=== PATIENT | female | born 1945 | race African-American/Black ===

== ENCOUNTER 2017-07-07 02:20 | Emergency (ER) | payer MEDICARE ==
[~2017-07-07] VITALS: Ht 162.6 cm; Wt 101.5 kg
[~2017-07-07 02:20] MED LIST: CALC-137 PO; COZA100T PO; DYAZ37.57 PO; LATA.005%O EACH EYE; VITA-13 PO
[2017-07-07 02:22] VITALS: BP 183/86; PULSE 90; RESP 18; TEMP 97.6; O2SAT 100
[2017-07-07 02:36] VITALS: BP 202/104; PULSE 79; RESP 15; O2SAT 99
[2017-07-07 02:37] VITALS: BP 200/107; PULSE 80; RESP 18; O2SAT 98
[2017-07-07] MEDS ORDERED: SODIUM CHLORIDE 0.9% FLUSH 10 ML FLUSH IVF PRN (02:45)
--- NOTE | 2017-07-07 02:53 | RADRPT ---
EXAM DATE/TIME: 07/07/2017 02:48 [place] COMPARISON: No previous studies available for comparison. INDICATIONS : Rapid Heart rate MEDICAL HISTORY : None. SURGICAL HISTORY : None. ENCOUNTER: Initial ACUITY: 1 day PAIN SCORE: 8/10 LOCATION: Bilateral chest FINDINGS: Mild cardiomegaly. No consolidation or effusion. Mild degenerative changes of the spine. CONCLUSION: No acute disease. Mason Marks MD on July 07, 2017 at 2:50 Board Certified Radiologist. This report was verified electronically.
--- NOTE | 2017-07-07 03:15 | PD ---
HPI Chief Complaint: Cardiac Complaint Time Seen by Provider: 02:32 Travel History International Travel<30 days: No Contact w/Intl Traveler<30days: No Traveled to known affect area: No History of Present Illness HPI The patient is a 71 year old female who presents to the [facility] emergency department with a history of palpitations and sob that began on 06/12. It comes and goes. It lasts for approximate 30 minutes at a time. Today is the 6th time it has happened. It is random and sometimes occurs at rest. She denies any history of chest pain. She saw her primary care physician regarding this on Friday. She has been referred to a new scalemaker and has an appointment on . She denies ever having a stress test done previously. She denies having any history of cardiac disease. She denies having any prior history of DVT or PE. She denies any prior history of congestive heart failure. She does have a history of hypertension. She reports that over the last month it has been difficult to control, however no changes have been made in her blood pressure regimen yet. She reports that she did have an EKG done, however she is unsure of the results. Review of systems otherwise, the patient denies having any recent fevers, cough or congestion, worsening lower extremity edema, neck pain, abdominal pain, vomiting, diarrhea, urinary symptoms, or neurologic symptoms. PCP: Dr. Haney. Cardiology: Dr. Vincent Hayden. [facility] Past Medical History Narrative Medical The patient's past medical history is significant for hypertension, pre-diabetes , glaucoma. Diminished Hearing: No Hypertension: Yes Past Surgical History Narrative Surgical breast bx-benign, cholecystectomy, uterine polyp removal. Cholecystectomy: Yes Gynecologic Surgery: Yes (UTERINE POLYPS REMOVED) Other Surgery: Yes (BREAST BIOPSY) Social History Alcohol Use: No Tobacco Use: No Substance Use: No Allergies-Medications (Allergen,Severity, Reaction): Coded Allergies: diphenhydramine (Unverified Allergy, Intermediate, Hives, 07/07/17) Reported Meds & Prescriptions Reported Meds & Active Scripts Active K-Tab (Potassium Chloride) 20 Meq Tab 20 Meq PO BID Reported Vitamin D-1000 (Cholecalciferol) 1,000 Unit Tab 1,000 Units PO DAILY Aspirin 81 (Aspirin) 81 Mg Tabdr 81 Mg PO DAILY Clonidine (Clonidine HCl) 0.1 Mg Tab 0.1 Mg PO BID Dyazide (Triamterene-Hydrochlorothiazide) 37.5-25 Mg Cap 1 Cap PO DAILY Losartan (Losartan Potassium) 100 Mg Tab 100 Mg PO DAILY Timolol Opth Drops 0.5 % Soln 1 Drop EACH EYE BID Review of Systems Except as stated in HPI: all other systems reviewed are Neg General / Constitutional: No: Fever Eyes: No: Visual changes HENT: No: Headaches, Rhinorrhea, Congestion Cardiovascular: Positive: Palpitations, Dyspnea on exertion, No: Chest Pain or Discomfort Respiratory: Positive: Shortness of Breath, No: Cough Gastrointestinal: No: Abdominal Pain Genitourinary: No: Dysuria Musculoskeletal: No: Pain Skin: No Rash Neurologic: No: Weakness, Focal Abnormalities, Change in Mentation, Slurred Speech, Sensory Disturbance Psychiatric: No: Depression Endocrine: No: Polydipsia Hematologic/Lymphatic: No: Easy Bruising Physical Exam Narrative General: The patient is a well-developed well-nourished female in no acute distress. Head and Neck exam: Head is normocephalic atraumatic. Eyes: EOMI, pupils are equal round and reactive to light. Nose: Midline septum with pink mucous membranes Mouth: Dentition unremarkable. Moist mucus membranes. Posterior oropharynx is not erythematous. No tonsillar hypertrophy. Uvula midline. Airway patent. Neck: No palpable lymphadenopathy. No nuchal rigidity. No thyromegaly. Cardiovascular: Regular rate and rhythm without murmurs, gallops, or rubs. Lungs: Clear to auscultation bilaterally. No wheezes, rhonchi, or rales. Abdomen: Soft, without tenderness to palpation in all 4 quadrants of the abdomen. No guarding, rebound, or rigidity. Normal bowel sounds are audible. No tenderness on palpation of McBurney's point. Extremities: No clubbing or cyanosis. The patient has trace pedal edema bilateral lower extremities. No calf tenderness on palpation. 2+ pulses in all 4 extremities. Back: No spinous process tenderness to palpation. No costovertebral angle tenderness to palpation. Neurologic Exam: Grossly nonfocal. Skin Exam: No rash noted. Intact skin that is warm and dry. Data Data Last Documented VS Vital Signs Date Time Temp Pulse Resp B/P (MAP) Pulse Ox O2 Delivery O2 Flow Rate FiO2 07/07/17 02:37 80 18 200/107 (138) 98 Room Air 07/07/17 02:22 97.6 Orders Orders Electrocardiogram (07/07/17 02:33) B-Type Natriuretic Peptide (07/07/17 02:33) Ckmb (Isoenzyme) Profile (07/07/17 02:33) Complete Blood Count With Diff (07/07/17 02:33) Comprehensive Metabolic Panel (07/07/17 02:33) D-Dimer (07/07/17 02:33) Magnesium (Mg) (07/07/17 02:33) Prothrombin Time / Inr (Pt) (07/07/17 02:33) Act Partial Throm Time (Ptt) (07/07/17 02:33) Troponin I (07/07/17 02:33) Lipase (07/07/17 02:33) Chest, Single Ap (07/07/17 02:33) Ecg Monitoring (07/07/17 02:33) Bilateral Bp Monitoring (07/07/17 02:33) Iv Access Insert/Monitor (07/07/17 02:33) Oximetry (07/07/17 02:33) Oxygen Administration (07/07/17 02:33) Sodium Chloride 0.9% Flush (Ns Flush) (07/07/17 02:45) Thyroid Stimulating Hormone (07/07/17 02:55) Potassium Chloride Eff (K-Lyte Cl Eff) (07/07/17 05:00) Ed Discharge Order (07/07/17 05:11) Labs Laboratory Tests Test 07/07/17 02:55 White Blood Count 9.6 TH/MM3 Red Blood Count 4.83 MIL/MM3 Hemoglobin 12.7 GM/DL Hematocrit 37.9 % Mean Corpuscular Volume 78.4 FL Mean Corpuscular Hemoglobin 26.3 PG Mean Corpuscular Hemoglobin Concent 33.5 % Red Cell Distribution Width 13.8 % Platelet Count 357 TH/MM3 Mean Platelet Volume 8.2 FL Neutrophils (%) (Auto) 64.5 % Lymphocytes (%) (Auto) 26.0 % Monocytes (%) (Auto) 7.4 % Eosinophils (%) (Auto) 1.6 % Basophils (%) (Auto) 0.5 % Neutrophils # (Auto) 6.2 TH/MM3 Lymphocytes # (Auto) 2.5 TH/MM3 Monocytes # (Auto) 0.7 TH/MM3 Eosinophils # (Auto) 0.2 TH/MM3 Basophils # (Auto) 0.0 TH/MM3 CBC Comment DIFF FINAL Differential Comment Prothrombin Time 9.7 SEC Prothromb Time International Ratio 1.0 RATIO Activated Partial Thromboplast Time 25.6 SEC D-Dimer Quantitative (PE/DVT) 0.46 MG/L FEU Blood Urea Nitrogen 23 MG/DL Creatinine 1.06 MG/DL Random Glucose 157 MG/DL Total Protein 7.3 GM/DL Albumin 3.6 GM/DL Calcium Level 9.2 MG/DL Magnesium Level 2.4 MG/DL Alkaline Phosphatase 76 U/L Aspartate Amino Transf (AST/SGOT) 14 U/L Alanine Aminotransferase (ALT/SGPT) 18 U/L Total Bilirubin 0.7 MG/DL Sodium Level 140 MEQ/L Potassium Level 3.1 MEQ/L Chloride Level 104 MEQ/L Carbon Dioxide Level 26.5 MEQ/L Anion Gap 10 MEQ/L Estimat Glomerular Filtration Rate 62 ML/MIN Total Creatine Kinase 62 U/L Troponin I LESS THAN 0.02 NG/ML B-Type Natriuretic Peptide 31 PG/ML Lipase 124 U/L Thyroid Stimulating Hormone 3rd Gen 5.300 uIU/ML MDM Medical Decision Making Medical Screen Exam Complete: Yes Emergency Medical Condition: Yes Medical Record Reviewed: Yes Interpretation(s) Last Impressions Chest X-Ray 07/07/17 0233 Signed Impressions: Service Date/Time: Friday, July 07, 2017 02:48 - CONCLUSION: No acute disease. Mason Marks MD Differential Diagnosis Acute coronary syndrome, versus new onset congestive heart failure, versus pulmonary embolism, versus cardiac arrhythmia Narrative Course During the course of the patient's emergency department visit, the patient's history, examination, and differential diagnosis were reviewed with the patient. The patient was placed on a nurse orthopaedic with oximetry and frequent blood pressure monitoring. The patient had IV access obtained and blood work sent for analysis. The patient's laboratory studies were reviewed and remarkable for a white count of 9.6, hemoglobin 12.7, platelets 357 with a normal differential, CMP is remarkable for potassium of 3.1 which was supplemented orally, BUN 23, creatinine 1.06, glucose 157, AST 14, cardiac enzymes within normal limits, BNP 31, lipase 124, TSH elevated at 5.3, d-dimer 0.46 decreasing the likelihood of pulmonary embolism in this patient with no other significant risk factors, PT PTT unremarkable. Radiology studies were reviewed and remarkable for the chest x-ray that shows no acute cardiopulmonary disease. The patient was offered admission to the chest pain center for rule out serial cardiac enzyme protocol followed by stress testing, however the patient reports that she prefers to follow-up as an outpatient. The patient will be given a prescription for a potassium supplement. The patient was instructed regarding her elevated TSH and the importance of following up with her primary care physician. She will call her primary care physician this morning for a follow- up appointment. She also has a cardiology appointment scheduled for . She was instructed to report back immediately if she has a recurrence of symptoms. The patient is resting comfortably and feels better, is alert and in no distress. The patient's results and examination findings were discussed with the patient. The repeat examination is unremarkable and benign. The history, exam, diagnostic testing, and current condition do not suggest any significant pathology to warrant further testing, continued ED treatment, admission, or surgical evaluation at this point. The vital signs have been stable. The patient does not have uncontrollable pain, intractable vomiting, or other significant symptoms. The patient's condition is stable and appropriate for discharge. The patient will pursue further outpatient evaluation with a primary care physician or other designated or consulting physician as indicated in the discharge instructions. The patient expressed understanding and was agreeable with this plan. Diagnosis Primary Impression: Hypokalemia Additional Impressions: Palpitations Elevated TSH Patient Instructions: General Instructions, Heart Palpitations (ED), Hypokalemia (ED), Hypothyroidism (ED) Med/Other Pt SpecificInfo: Prescription(s) given Scripts Potassium Chloride ER (K-Tab) 20 Meq Tab 20 MEQ PO BID for Electrolyte Replacement, #10 TAB 0 Refills Prov: Jayleen Rebollar MD 07/07/17 Disposition: 01 DISCHARGE HOME Condition: Stable Jayleen Rebollar MD Jul 07, 2017 03:15
[2017-07-07 03:30] LABS: AUTOMATED NEUTROPHIL # 6.2 TH/MM3 (1.8-7.7); BASOPHIL % 0.5 % (0.0-2.0); EOSINOPHIL # 0.2 TH/MM3 (0-0.4); EOSINOPHIL % 1.6 % (0.0-4.0); HEMATOCRIT 37.9 % (35.0-46.0); HEMOGLOBIN 12.7 GM/DL (11.6-15.3); LYMPHOCYTE # 2.5 TH/MM3 (1.0-4.8); MEAN CELL VOLUME 78.4 FL (80.0-100.0); MEAN CORPUSCULAR HEMOGLOBIN 26.3 PG (27.0-34.0); MEAN CORPUSCULAR HGB CONC 33.5 % (32.0-36.0); MEAN PLATELET VOLUME 8.2 FL (7.0-11.0); MONO % 7.4 % (0.0-8.0); MONOCYTE # 0.7 TH/MM3 (0-0.9); NEUT % 64.5 % (16.0-70.0); PLATELET COUNT 357 TH/MM3 (150-450); RED BLOOD COUNT 4.83 MIL/MM3 (4.00-5.30); RED CELL DISTRIBUTION WIDTH 13.8 % (11.6-17.2); WHITE BLOOD COUNT 9.6 TH/MM3 (4.0-11.0)
[2017-07-07 03:43] LABS: ALBUMIN 3.6 GM/DL (3.4-5.0); ALT (GPT) 18 U/L (10-53); AST (GOT) 14 U/L (15-37); BICARBONATE 26.5 MEQ/L (21.0-32.0); BLOOD UREA NITROGEN 23 MG/DL (7-18); CALCIUM 9.2 MG/DL (8.5-10.1); CHLORIDE 104 MEQ/L (98-107); CREATININE 1.06 MG/DL (0.50-1.00); GLOMERULAR FILTRATION RATE 62 ML/MIN (>89); GLUCOSE,RANDOM 157 MG/DL (74-106); MAGNESIUM 2.4 MG/DL (1.5-2.5); SODIUM (NA) 140 MEQ/L (136-145)
[2017-07-07 03:45] LABS: PROTHROMBIN TIME - PATIENT 9.7 SEC (9.8-11.6)
[2017-07-07] MEDS ORDERED: TIMO0.5S30 EACH EYE (03:45)
[2017-07-07] MEDS ORDERED: LOSA100T PO (03:45)
[2017-07-07] MEDS ORDERED: ASPI1TAB57 PO (03:45)
[2017-07-07] MEDS ORDERED: CLON0.1T PO (03:45)
[2017-07-07] MEDS ORDERED: VITA1000 PO (03:45)
[2017-07-07] MEDS ORDERED: DYAZ37.5 PO (03:45)
[2017-07-07 03:46] LABS: D-DIMER 0.46 MG/L FEU (0.00-0.50)
[2017-07-07 03:53] LABS: ALKALINE PHOSPHATASE 76 U/L (45-117); TOTAL BILIRUBIN ADULT 0.7 MG/DL (0.2-1.0); TOTAL PROTEIN 7.3 GM/DL (6.4-8.2); TROPONIN I LESS THAN 0.02 NG/ML (0.02-0.05)
[2017-07-07] MEDS ORDERED: POTASSIUM CHLORIDE 25 MEQ EFFERVESCENT TAB PO ONE (05:00)
[2017-07-07] MEDS ORDERED: POTA1TAB4 PO (05:12)
--- NOTE | 2017-07-07 11:09 | EKG ---
Date Performed: 07/07/2017 Time Performed: 02:38:08 PTAGE: 71 years EKG: Sinus rhythm POSSIBLE LEFT ATRIAL ENLARGEMENT BORDERLINE ECG Since the prior tracing, there has been no significa nt change PREVIOUS TRACING DOCTOR: Roger Saunders Interpretating Date/Time 07/07/2017 11:03:59
== END 2017-07-07 05:35 | disposition home or self-care (01) ==
LOC: NEPE 02:20
DX: E87.6 Hypokalemia (principal); R00.2 Palpitations; R94.6 Abnormal results of thyroid function studies; R94.31 Abnormal electrocardiogram [ECG] [EKG]; I10 Essential (primary) hypertension; R73.03 Prediabetes; H40.9 Unspecified glaucoma; Z88.8 Allergy status to other drugs, medicaments and biological substances
CPT/HCPCS: 71045; 80053; 82550; 83690; 83735; 83880; 84443; 84484; 85025; 85379; 85610; 85730; 93005; 99285